=== PATIENT | male | born 1985 | race Two or more races ===

== ENCOUNTER 2022-12-09 12:12 | Emergency (ER) | payer MEDICAID, OTHER, SELFPAY ==
[2022-12-09 12:57] VITALS: BP 153/66; PULSE 87; RESP 18; TEMP 36.7; O2SAT 100; BMI 23.0
--- NOTE | 2022-12-09 12:59 | ED.EYEPROB ---
HPI - Eye Problem General Chief complaint: Eye Problems <ANTONIO Bob - Last Filed: 12/09/22 13:01> Stated complaint: L Eye Injury 12/09/22 <ANTONIO Bob - Last Filed: 12/09/22 13:01> Time Seen by Provider: 12/09/22 13:11 <ANTONIO Bob - Last Filed: 12/09/22 13:01> History of Present Illness HPI Narrative: patient complains of laceration to the face after a branch fell off a tree and fell down and hit him in the upper left eyelid, he denies any eye pain he denies any vision loss, no loss of consciousness no headache, the only pain is mild pain in the area of the laceration, no dizziness no confusion no retrograde amnesia no nausea vomiting no vision changes <ANTONIO Yang - Last Filed: 12/09/22 16:38> Related Data Home medications: Previous Rx's Medication Instructions Recorded ibuprofen 600 mg tablet 600 mg PO Q6H PRN pain #20 tabs 12/09/22 <ANTONIO Bob - Last Filed: 12/09/22 13:01> Allergies/adverse reactions: Allergies Allergy/AdvReac Type Severity Reaction Status Date / Time No Known Allergies Allergy Verified 12/09/22 12:57 <ANTONIO Bob Last Filed: 12/09/22 13:01> [facility] Past Medical History Source: nursing notes reviewed <ANTONIO Yang - Last Filed: 12/09/22 16:38> Medical History: Medical History (Updated 12/10/22 @ 00:01 by Rafal Crabtree) No pertinent past medical history <ANTONIO Bob - Last Filed: 12/09/22 13:01> Social History Social History: Social History Alcohol intake: current Alcohol intake frequency: holidays/special occasions only Smoked in Last 30 Days: Yes Use of substances other than those prescribed or required for medical reasons: No Advance Directives: No <ANTONIO Bob Last Filed: 12/09/22 13:01> Physical Exam Vital Signs: Vital Signs: Last Vital Signs Temp 98.0 F 12/09/22 12:57 Pulse 87 12/09/22 12:57 Resp 18 12/09/22 12:57 BP 153/66 H 12/09/22 12:57 Pulse Ox 100 12/09/22 12:57 O2 Del Method 12/09/22 12:57 BMI result Body Mass Index 23.0 <ANTONIO Bob - Last Filed: 12/09/22 13:01> Vital Signs: Last Vital Signs Temp 98.0 F 12/09/22 12:57 Pulse 87 12/09/22 12:57 Resp 18 12/09/22 12:57 BP 153/66 H 12/09/22 12:57 Pulse Ox 100 12/09/22 12:57 O2 Del Method 12/09/22 12:57 BMI result Body Mass Index 23.0 <ANTONIO Yang - Last Filed: 12/09/22 16:38> Vital Signs: Last Vital Signs Temp 98.0 F 12/09/22 12:57 Pulse 87 12/09/22 12:57 Resp 18 12/09/22 12:57 BP 153/66 H 12/09/22 12:57 Pulse Ox 100 12/09/22 12:57 O2 Del Method 12/09/22 12:57 BMI result Body Mass Index 23.0 <Luis Eduardo Gamble MD - Last Filed: 12/13/22 11:33> general appearance no distress The left eyelid is ecchymotic and swollen, the medial superior aspect of left upper lid has a 1 cm laceration superior to the lacrimal duct, it is not through and through Eye exam visual acuity is 2020 bilateral Left eyeStaining with fluorescein did not reveal any corneal abrasion or defect, pupils equal round reactive to light, extraocular motions are full and intact Right eye was normal in appearance Rest of facial exam there is no tenderness over bones of the orbit no other wounds or signs of trauma on the face aside from the left upper lid Neck is supple nontender The back full range of motion Extremities full range of motion x4 Neuro gait and balance are normal, motor is 5/5 x4, interaction comprehension expression oral norm <ANTONIO Yang - Last Filed: 12/09/22 16:38> Course Course Course Narrative: RME - 37 yo male presenting with left eye pain, bleeding and swelling after a branch hit him in the face just prior to arrival. No LOC. Small lac on the upper lid along with diffuse swelling. c/o 7/10 headache, minimal eye pain at this time. To go back to [facility] now. Needs tdap which has been ordered. <ANTONIO Bob - Last Filed: 12/09/22 13:01> RME - 37 yo male presenting with left eye pain, bleeding and swelling after a branch hit him in the face just prior to arrival. No LOC. Small lac on the upper lid along with diffuse swelling. c/o 7/10 headache, minimal eye pain at this time. To go back to [facility] now. Needs tdap which has been ordered. 1 cm laceration to the upper left medial aspect of the eyelid, not through and through, , no eye pain no vision loss no corneal abrasion seen, visual acuity was 2020 bilateral, symmetrical, so appears to be isolated wound of left upper eyelid without damage to the eyeball itself 1 cm laceration of the left upper eyelid is cleansed and irrigated with normal saline Anesthesia was 2 cc of 1% lidocaine injected superficially and medially towards the nose away from the eye Wound was again examined carefully no foreign body, it was examined to the base of the wound 1x 6.0 nylon suture was placed in the lateral widest aspect of the wound, I decided not to place any other suture as getting more medial may be near the lacrimal duct so only 1 suture was put Well-appearing patient without any pain now seeing normally from his eyes with swollen eyelid and 1 suture placed in the wound is discharged <ANTONIO Yang - Last Filed: 12/09/22 16:38> Medications Administered Discontinued Medications Generic Name Dose Route Start Last Admin Trade Name Treeq PRN Reason Stop Dose Admin Acetaminophen 975 mg 12/09/22 13:06 12/09/22 13:45 Acetaminophen 325 Mg Tablet PO 12/09/22 13:07 975 mg ONCE ONE Administration Diphtheria/Tetanus/Acell Pertussis 0.5 ml 12/09/22 13:00 12/09/22 13:45 Diphth,Pertus(Acell),Tet Adult 0.5 Ml Syringe IM 12/09/22 13:01 0.5 ml .ONCE ONE Administration Fluorescein Sodium 1 strip 12/09/22 14:18 12/09/22 14:26 Fluorescein Sodium Strip EYE-LEFT 12/09/22 14:19 1 strip ONCE ONE Administration Tetracaine HCl 1 drop 12/09/22 14:18 12/09/22 14:26 Tetracaine Hcl/Pf 0.5% Oph Lenore 4 Ml Drops EYE-LEFT 12/09/22 14:19 1 drop ONCE ONE Administration <ANTONIO Bob - Last Filed: 12/09/22 13:01> Medications Administered Discontinued Medications Generic Name Dose Route Start Last Admin Trade Name Jose PRN Reason Stop Dose Admin Acetaminophen 975 mg 12/09/22 13:06 12/09/22 13:45 Acetaminophen 325 Mg Tablet PO 12/09/22 13:07 975 mg ONCE ONE Administration Diphtheria/Tetanus/Acell Pertussis 0.5 ml 12/09/22 13:00 12/09/22 13:45 Diphth,Pertus(Acell),Tet Adult 0.5 Ml Syringe IM 12/09/22 13:01 0.5 ml .ONCE ONE Administration Fluorescein Sodium 1 strip 12/09/22 14:18 12/09/22 14:26 Fluorescein Sodium Strip EYE-LEFT 12/09/22 14:19 1 strip ONCE ONE Administration Tetracaine HCl 1 drop 12/09/22 14:18 12/09/22 14:26 Tetracaine Hcl/Pf 0.5% Oph Lenore 4 Ml Drops EYE-LEFT 12/09/22 14:19 1 drop ONCE ONE Administration <ANTONIO Yang - Last Filed: 12/09/22 16:38> Medications Administered Discontinued Medications Generic Name Dose Route Start Last Admin Trade Name Jose PRN Reason Stop Dose Admin Acetaminophen 975 mg 12/09/22 13:06 12/09/22 13:45 Acetaminophen 325 Mg Tablet PO 12/09/22 13:07 975 mg ONCE ONE Administration Diphtheria/Tetanus/Acell Pertussis 0.5 ml 12/09/22 13:00 12/09/22 13:45 Diphth,Pertus(Acell),Tet Adult 0.5 Ml Syringe IM 12/09/22 13:01 0.5 ml .ONCE ONE Administration Fluorescein Sodium 1 strip 12/09/22 14:18 12/09/22 14:26 Fluorescein Sodium Strip EYE-LEFT 12/09/22 14:19 1 strip ONCE ONE Administration Tetracaine HCl 1 drop 12/09/22 14:18 12/09/22 14:26 Tetracaine Hcl/Pf 0.5% Oph Lenore 4 Ml Drops EYE-LEFT 12/09/22 14:19 1 drop ONCE ONE Administration <Luis Eduardo Gamble MD - Last Filed: 12/13/22 11:33> Medical Decision Making Attestation Attending Attestation: I reviewed [employer]/PA/Resident note, assessment and plan. I agree with the documentation, assessment and plan unless otherwise stated. I personally evaluated the patient. There was a small laceration left eyelid just below the brow ridge. There was no visible ocular damage or vision complaints. <Luis Eduardo Gamble MD - Last Filed: 12/13/22 11:33> Discharge Plan Discharge Clinical Impression: Laceration of left orbit, Contusion of eyelid <ANTONIO Bob - Last Filed: 12/09/22 13:01> Patient Disposition: Home, Self-Care <ANTONIO Bob - Last Filed: 12/09/22 13:01> Additional Instructions: return to the ER in 5 days for removal of 1 suture You can wash gently using just water to keep the wound clean, the swelling in the eyelid you can apply ice Return any time for eye pain, vision loss, discharge from eye, redness or swelling around wound, increased pain, discharge from wound, any sign of infection any worse condition or any concerns You got a tetanus shot today <ANTONIO Bob - Last Filed: 12/09/22 13:01> Prescriptions: New ibuprofen 600 mg tablet 600 mg PO Q6H PRN (Reason: pain) Qty: 20 0RF <ANTONIO Bob - Last Filed: 12/09/22 13:01> Interventions: ED Discharge Assessment Last Done: 12/09/22 15:00 <ANTONIO Bob - Last Filed: 12/09/22 13:01> Discharge Date/Time: 12/09/22 15:00 <ANTONIO Bob - Last Filed: 12/09/22 13:01>
[2022-12-09] MEDS: Acetaminophen 325 MG TABLET 975 MG PO (13:45)
[2022-12-09] MEDS: Diphth,Pertus(ACell),Tet Adult 0.5 ML SYRINGE IM (13:45)
--- NOTE | 2022-12-09 13:49 | PC.NURSE ---
pt medicated per orders, pt resting comfortably awating ED provider
[2022-12-09] MEDS: Tetracaine HCl/PF 0.5% Oph Sol 4 ML DROPS 1 DROP EYE-LEFT (14:26)
[2022-12-09] MEDS: Fluorescein Sodium STRIP 1 STRIP EYE-LEFT (14:26)
== END 2022-12-09 15:00 | disposition home or self-care (01) ==
PROVIDERS: Emergency Provider Emergency Medicine
DX: S01.112A Laceration without foreign body of left eyelid and periocular area, initial encounter (principal); W20.8XXA Other cause of strike by thrown, projected or falling object, initial encounter; Y93.9 Activity, unspecified; Y92.410 Unspecified street and highway as the place of occurrence of the external cause; Y99.9 Unspecified external cause status
CPT/HCPCS: 90471; 90715; 99284

== ENCOUNTER 2022-12-27 11:26 | Emergency (ER) | payer MEDICAID, OTHER, SELFPAY ==
[2022-12-27 12:12] VITALS: BP 126/58; PULSE 56; RESP 16; TEMP 36.6; O2SAT 98; BMI 24.9
--- NOTE | 2022-12-27 12:12 | ED_ITS ---
HPI - Wound/Laceration General Chief Complaint: General Medical Stated Complaint: suture removal Time Seen by Provider: 12/27/22 12:11 Source: patient and old records reviewed Mode of arrival: ambulatory Limitations: no limitations History of Present Illness HPI narrative: 37 yo male presents to the ER for suture removal. On 12/09 he had a tree branch strike him in the face and he required 1 suture to the inner portion of his left eye. He has been unable to come back to get it out because he works in [employer]. He reports no issues with wound healing. No swelling, redness, drainage. No vision issues. Location: face Patient tetanus UTD: Yes Context: accidental Associated symptoms: none Related Data Previous Rx's Medication Instructions Recorded ibuprofen 600 mg tablet 600 mg PO Q6H PRN pain #20 tabs 12/09/22 Allergies Allergy/AdvReac Type Severity Reaction Status Date / Time No Known Allergies Allergy Verified 12/27/22 12:11 Review of Systems Review of Systems: Yes all other systems are reviewed and are negative [facility] Past Medical History Medical History (Updated 12/27/22 @ 12:14 by ANTONIO Bob) No pertinent past medical history Social History Social History Alcohol intake: current Alcohol intake frequency: holidays/special occasions only Advance Directives: No Physical Exam Vital Signs: Vital Signs: Last Vital Signs Temp 97.9 F 12/27/22 12:12 Pulse 56 12/27/22 12:12 Resp 16 12/27/22 12:12 BP 126/58 L 12/27/22 12:12 Pulse Ox 98 12/27/22 12:12 O2 Del Method 12/27/22 12:12 BMI result Body Mass Index 24.9 Appearance: Alert. Oriented X3. No acute distress. HEENT: left eye with [address] just superior to the inner canthus, scabbing. EOMI, PERRLA. CVS: Normal heart rate and rhythm. Pulses normal. Respiratory: No respiratory distress. Skin: Skin warm and dry. Normal skin color. Normal skin turgor. No rashes. Extremities: normal inspection x4, normal ROM Neuro: Oriented X 3. Grossly normal, nonfocal Course Course Course Narrative: 37 yo male presents for suture removal to the left eye. Has been in place 18 days with scabbing. Area was cleaned and suture was able to be removed successfully. Wound care discussed. stable for d/c home. Medical Decision Making Differential Diagnosis Differential Diagnoses: The differential diagnosis associated with the presentation includes suture removal, delayed healing, healing over the sutures, wound infection External Record Review External record reviewed: Office record Critical Care Time Critical Care Time Critical Care Time: No Discharge Plan Discharge Clinical Impression: Visit for suture removal Patient Disposition: Home, Self-Care Instructions: Stitches Removal (ED) Additional Instructions: use bacitracin to the area 1-2 times per day Prescriptions: No Action ibuprofen 600 mg tablet 600 mg PO Q6H PRN (Reason: pain) Qty: 20 0RF Interventions: ED Discharge Assessment Last Done: 12/27/22 12:22 Discharge Date/Time: 12/27/22 12:22
== END 2022-12-27 12:22 | disposition home or self-care (01) ==
PROVIDERS: Emergency Provider Emergency Medicine
DX: Z48.02 Encounter for removal of sutures (principal)
CPT/HCPCS: 99282; 99283